=== PATIENT | female | born 1990 | race Caucasian/White ===

== ENCOUNTER → 2020-10-22 | Outpatient (CLI) | payer OTHER ==
--- NOTE | 2020-10-22 11:44 | US ---
EXAMINATION TYPE: Transabdominal DATE OF EXAM: 10/22/2020 11:28 AM COMPARISON: NONE CLINICAL HISTORY: R10.9 stomach cramps. EXAM PERFORMED: EXAM MEASUREMENTS: GESTATIONAL AGE / DATING Physician Established: (13 weeks/0 days) EDC: 04-29-21 Dates by LMP: (13 weeks/0 days) EDC: 04-29-21 Dates by First Scan: ( weeks/ days) EDC: Dates by Current Scan for: (13 weeks/6 days) EDC: 04-23-21 MATERNAL ANATOMY Uterus: 12.2 x 9.4 x 10.4cm Right Ovary: not visualized due to increased uterine size/overlying bowel gas Left Ovary: not visualized due to increased uterine size/overlying bowel gas Post CDS / Adnexa: wnl Presence of free fluid: no GESTATION / SURVEY CRL: (13 weeks/6 days) Yolk Sac (normal less than 6mm): not seen Heart Rate: 165 bpm Rhythm: Normal IUP: Viable IUP Date of LMP: 07-23-21 Beta HcG (if available): Not available at this time IMPRESSION: Single viable intrauterine .
== END | disposition home or self-care (01) ==
LOC: RADUSWWP 11:12
PROVIDERS: ATTEND Family Medicine
DX: R10.9 Unspecified abdominal pain (principal); Z3A.13 13 weeks gestation of pregnancy
CPT/HCPCS: 76801

== ENCOUNTER 2021-04-28 09:02 | Inpatient (IN) | payer OTHER ==
[2021-04-28] MEDS ORDERED: METHYLERGONOVINE 0.2 MG/ML 1 ML AMP IM PRN (09:10)
[2021-04-28] MEDS ORDERED: OXYTOCIN 10 UNIT/ML 1 ML VIAL IM PRN (09:10)
[2021-04-28] MEDS ORDERED: CARBOPROST TROMETHAMINE 250 MCG/ML 1 ML AMP IM PRN (09:10)
[2021-04-28] MEDS ORDERED: TERBUTALINE 1 MG/ML VIAL SQ PRN (09:10)
[2021-04-28] MEDS ORDERED: LIDOCAINE 0.5% (PF) 5 MG/ML (50 ML SDV) SQ PRN (09:10)
[2021-04-28] MEDS ORDERED: LACTATED RINGERS 1,000 ML IV SCH (09:15)
[2021-04-28] MEDS ORDERED: OXYTOCIN 30 UNITS/500 ML NS 30 UNIT in SALINE 1 500ML.BAG IV SCH ×2 (09:15→12:00)
[2021-04-28] MEDS ORDERED: BUTORPHANOL 1 MG/ML 1 ML VIAL IV PRN (10:04)
--- NOTE | 2021-04-28 10:14 | P.HPOB ---
History of Present Illness H&P Date: 04/28/21 Chief Complaint: Contractions This is a 30-year-old female 3 para 1 with an estimated date of confinement of 04/29/2021, estimated gestational age of 39-6/7 weeks, who presents to labor and delivery with complaints of contractions that began about 3 AM this morning. She denies any rupture of membranes. care has been with Dr. Christensen and has been uncomplicated. labs: GC/Chlamydia/Trichomonas-negative Hepatitis B surface antigen-negative RPR-nonreactive Rubella-immune Blood type- O+ Antibody screen-negative HIV-nonreactive Hemoglobin-12.2 Toxoplasma screen-negative Random glucose-83 Obstetrical ultrasound-normal anatomy One hour Glucola-108 Group B streptococcus-negative Obstetrical history: . History of 1 vaginal delivery at term and one termination of (confidential). Gynecologic history: No history of sexual transmitted infections Social history: She is single. 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 Review of Systems Constitutional: Denies chills, Denies fever Eyes: denies blurred vision, denies pain Ears, nose, mouth and throat: Denies headache, Denies sore throat Cardiovascular: Denies chest pain, Denies shortness of breath Respiratory: Denies cough Gastrointestinal: Reports abdominal pain (Contractions) Genitourinary: Reports pelvic pain, Reports Musculoskeletal: Reports low back pain Integumentary: Denies pruritus, Denies rash Neurological: Denies numbness, Denies weakness Psychiatric: Denies anxiety, Denies depression Past Medical History Past Medical History: No Reported History History of Any Multi-Drug Resistant Organisms: None Reported Additional Past Surgical History / Comment(s): Patient's had her wisdom teeth extracted. Past Anesthesia/Blood Transfusion Reactions: No Reported Reaction Past Psychological History: No Psychological Hx Reported Smoking Status: Never smoker Past Alcohol Use History: None Reported Past Drug Use History: None Reported - Past Family History Father Family Medical History: No Reported History Medications and Allergies Home Medications Medication Instructions Recorded Confirmed Type Cub-Lwgi-Fauaf Acid 1 tab PO DAILY 08/05/14 04/28/21 History [-U Capsule (formulary)] Allergies Allergy/AdvReac Type Severity Reaction Status Date / Time Penicillins Allergy Unknown Verified 08/05/14 01:03 Childhood Exam Osteopathic Statement: *. No significant issues noted on an osteopathic structural exam other than those noted in the History and Physical/Consult. Vital Signs Temp Pulse Resp BP Pulse Ox 04/28/21 09:16 97.2 F L 80 18 128/77 100 Intake and Output 04/27/21 04/28/21 04/28/21 22:59 06:59 14:59 Other: Weight 73.936 kg HEENT: Within normal limits Heart: Regular rate and rhythm Lungs: Clear to auscultation bilaterally Abdomen: Cervix: Upon admission was 6 cm with bulging bag. Currently is 7-1/2-8 cm/100%/-2 station. Artificial rupture of membranes is carried out with clear fluid noted. heart tones: Category 1, reactive Contractions: Every 2-3 minutes Extremities: Negative Homans Assessment and Plan (1) 39 weeks gestation of Current Visit: Yes Status: Acute Code(s): Z3A.39 - 39 WEEKS GESTATION OF PRE GNANCY SNOMED Code(s): 03993280 Plan: Admission for active labor. Expectant management. We'll give a small dose of Stadol since she is progressing rapidly and is unable to get epidural at this time.
--- NOTE | 2021-04-28 11:07 | P.PROBDLV ---
Vaginal Delivery Note - . Vaginal Delivery Note: Patient progressed to complete dilation after artificial rupture membranes with clear fluid noted. She did receive a half a milligram of Stadol while in labor. Once reaching anterior lip, she had a strong urge to push. The lip was pushed away with pushing efforts by nursing staff. Once the lip was gone and she became complete, she began pushing further. Infant's head came to a crown. With one further push, the 's head delivered across the perineum followed by the anterior shoulder. Nose and mouth were bulb suctioned. Nuchal cord times one was reduced on the with delivery. was placed on mother's abdomen. Cord was clamped and cut and infant was taken to warmer for evaluation. A viable female was noted with scores of 6 at 1 minute and 9 at 5 minutes and infant weight of 8 lbs. 4 oz. Placenta delivered shortly thereafter, intact, with a three-vessel cord. Uterus contracted fairly well after oxytocin was given IM and uterine massage was carried out. Inspection of the perineum revealed a small second-degree perineal laceration and a right periurethral laceration. These areas were anesthetized with 1% lidocaine and then sutured with 3-0 Vicryl suture in a running locked fashion and 2-0 Vicryl suture in the usual multilayer fashion. There was also noted to be a left periurethral abrasion that was noted to be hemostatic. Estimated blood loss is approximately 200 mL's. Both mother and infant are in stable condition.
[2021-04-28] MEDS ORDERED: ACETAMINOPHEN TAB 325 MG TAB PO PRN (11:52)
[2021-04-28] MEDS ORDERED: diphenhydrAMINE 50 MG/ML 1 ML VIAL IVP PRN ×2 (11:52)
[2021-04-28] MEDS ORDERED: SIMETHICONE 80 MG CHEWABLE PO PRN (11:52)
[2021-04-28] MEDS ORDERED: ZOLPIDEM 5 MG TAB PO PRN (11:52)
[2021-04-28] MEDS ORDERED: diphenhydrAMINE 50 MG CAP PO PRN (11:52)
[2021-04-28] MEDS ORDERED: LANOLIN CREAM 5 GM TUBE TOPICAL PRN (11:52)
[2021-04-28] MEDS ORDERED: HYDROCORTISONE 2.5% RECTAL CREAM 30 GM TUBE RECTAL PRN (11:52)
[2021-04-28] MEDS ORDERED: BENZOCAINE/MENTHOL SPRAY 1 GM/SPRAY AEROSOL TOPICAL PRN (11:52)
[2021-04-28] MEDS ORDERED: diphenhydrAMINE 25 MG CAP PO PRN (11:52)
[2021-04-28] MEDS: IBUPROFEN 600 MG TAB PO PRN ×2 (12:13→18:56)
[2021-04-28 14:28] LABS: Basophils % (A) 0 %; Eosinophils % (A) 0 %; HCT 30.8 % (34.0-46.0); HGB 10.3 gm/dL (11.4-16.0); Lymphocytes # (A) 1.3 k/uL (1.0-4.8); Lymphocytes % (A) 7 %; MCH 29.1 pg (25.0-35.0); MCHC 33.6 g/dL (31.0-37.0); MCV 86.7 fL (80.0-100.0); Mean Platelet Volume 8.8; Monocytes # (A) 0.8 k/uL (0-1.0); Monocytes % (A) 4 %; Neutrophils # (A) 16.9 k/uL (1.3-7.7); Neutrophils % (A) 88 %; Platelet Count 268 k/uL (150-450); Poikilocytosis Slight; RBC 3.55 m/uL (3.80-5.40); RDW 14.7 % (11.5-15.5); WBC 19.1 k/uL (3.8-10.6)
[2021-04-28] MEDS ORDERED: SENNOSIDES-DOCUSATE SODIUM 1 EACH TAB PO SCH (20:00)
[2021-04-28 20:29] VITALS: RESP 16
[2021-04-29] MEDS: IBUPROFEN 600 MG TAB PO PRN ×2 (01:42→08:19)
--- NOTE | 2021-04-29 05:47 | P.PNOBGVD ---
Subjective - Subjective Patient reports: Reports appetite normal, Reports voiding normally, Reports pain well controlled, Reports ambulating normally : doing well Objective - Latest Vital Signs Latest vital signs: Vital Signs Temp Pulse Resp BP Pulse Ox 04/29/21 03:59 97.5 F L 73 16 117/75 04/29/21 00:00 83 16 106/53 04/28/21 20:00 97.5 F L 71 16 109/70 04/28/21 16:00 97.4 F L 85 18 120/75 99 04/28/21 13:00 97.8 F 68 18 131/68 100 04/28/21 12:30 87 18 121/77 100 04/28/21 12:00 68 18 112/68 04/28/21 11:45 98.1 F 74 18 115/63 04/28/21 11:30 73 18 112/58 04/28/21 11:15 98.0 F 79 18 116/65 04/28/21 11:00 98.0 F 83 18 110/59 100 04/28/21 09:16 97.2 F L 80 18 128/77 100 Intake and Output 04/28/21 04/28/21 04/29/21 14:59 22:59 06:59 Intake Total 600 200 Balance 600 200 Intake: Oral 600 200 Other: # Voids 1 3 Weight 73.936 kg - Exam Lungs: bilateral: normal Chest: Normal S1, Normal S2 Extremities: Present: normal Abdomen: Present: normal appearance, soft Uterus: Present: normal, firm - Labs Labs: Abnormal Lab Results - Last 24 Hours (Table) 04/28/21 Range/Units 14:11 WBC 19.1 H (3.8-10.6) k/uL RBC 3.55 L (3.80-5.40) m/uL Hgb 10.3 L (11.4-16.0) gm/dL Hct 30.8 L (34.0-46.0) % Neutrophils # 16.9 H (1.3-7.7) k/uL Assessment and Plan Assessment: day #1. Patient is resting without complaints and wishes to go home. Vital signs are stable and she is afebrile. Uterus is firm nontender she's having normal lochia. My impression this is a normal course. Plan is to continue routine care, check CBC, discharge home later today. (1) 39 weeks gestation of Current Visit: Yes Status: Acute Code(s): Z3A.39 - 39 WEEKS GESTATION OF SNOMED Code(s): 10906572 (2) Normal labor and delivery Current Visit: No Status: Acute Code(s): O80 - ENCOUNTER FOR FULL-TERM UNCOMPLICATED DELIVERY SNOMED Code(s): 82186290
--- NOTE | 2021-04-29 05:52 | P.DS ---
Providers Date of admission: 04/28/21 09:13 Expected date of discharge: 04/29/21 Attending physician: Ra Christensen Primary care physician: Stated None - Discharge Diagnosis(es) (1) 39 weeks gestation of Current Visit: Yes Status: Acute (2) Normal labor and delivery Current Visit: No Status: Acute Hospital Course: Please see dictated H&P and delivery note per Dr. Mcneil on this patient's admission. Brief summary this is a pleasant 30-year-old 3 para 1 female 39-6/7 weeks gestation admitted to labor and delivery in active labor. Patient quickly goes on have a vaginal delivery viable female infant. Please see dictated delivery note. day #1 patient's felt be stable for discharge home follow up with me in 6 weeks. Procedures: Normal spontaneous vaginal delivery. Patient Condition at Discharge: Good Plan - Discharge Summary New Discharge Prescriptions: New Ibuprofen [Motrin] 600 mg PO Q6HR PRN #30 tab PRN Reason: Pain No Action Duj-Bhmf-Bewzc Acid [-U Capsule (formulary)] 1 tab PO DAILY Discharge Medication List Tix-Dyws-Kqwao Acid [-U Capsule (formulary)] 1 tab PO DAILY 08/05/14 [History] Ibuprofen [Motrin] 600 mg PO Q6HR PRN #30 tab 04/29/21 [Rx] Follow up Appointment(s)/Referral(s): Ra Christensen MD [STAFF PHYSICIAN] - 6 Weeks Patient Instructions/Handouts: Vaginal Delivery (DC) Activity/Diet/Wound Care/Special Instructions: No intercourse or anything per vagina for 6 weeks. Please call for any fever, chills, excessive vaginal bleeding, and/or abdominal pain. Discharge Disposition: HOME SELF-CARE
[2021-04-29 06:55] LABS: Basophils % (A) 0 %; Eosinophils # (A) 0.1 k/uL (0-0.7); Eosinophils % (A) 1 %; HGB 10.2 gm/dL (11.4-16.0); Lymphocytes # (A) 1.9 k/uL (1.0-4.8); Lymphocytes % (A) 15 %; MCHC 35.1 g/dL (31.0-37.0); MCV 85.7 fL (80.0-100.0); Mean Platelet Volume 8.1; Monocytes # (A) 0.7 k/uL (0-1.0); Monocytes % (A) 5 %; Neutrophils # (A) 9.7 k/uL (1.3-7.7); Neutrophils % (A) 76 %; Platelet Count 258 k/uL (150-450); Poikilocytosis Slight; RBC 3.39 m/uL (3.80-5.40); WBC 12.7 k/uL (3.8-10.6)
[2021-04-29 08:30] VITALS: BP 96/62; PULSE 64; TEMP 98
[2021-04-29] MEDS ORDERED: PRENATAL VIT-IRON-FOLIC ACID 1 EACH CAP PO SCH (09:00)
== END 2021-04-29 13:15 | disposition home or self-care (01) | DRG 807 ==
LOC: FBPOP 09:02 → 4FBP 09:13
PROVIDERS: ADMIT Obstetrics & Gynecology; ATTEND Obstetrics & Gynecology
PROC: 10E0XZZ Delivery of Products of Conception, External Approach (ICD-10-PCS; principal; 2021-04-28)
PROC: 0KQM0ZZ Repair Perineum Muscle, Open Approach (ICD-10-PCS; 2021-04-28)
PROC: 0UQMXZZ Repair Vulva, External Approach (ICD-10-PCS; 2021-04-28)
PROC: 10907ZC Drainage of Amniotic Fluid, Therapeutic from Products of Conception, Via Natural or Artificial Opening (ICD-10-PCS; 2021-04-28)
PROC: 3E033VJ Introduction of Other Hormone into Peripheral Vein, Percutaneous Approach (ICD-10-PCS; 2021-04-28)
DX: O69.81X0 Labor and delivery complicated by cord around neck, without compression, not applicable or unspecified (principal); Z37.0 Single live birth; O70.1 Second degree perineal laceration during delivery; O71.82 Other specified trauma to perineum and vulva; Z3A.39 39 weeks gestation of pregnancy; Z88.0 Allergy status to penicillin
CPT/HCPCS: 85025; 86850; 86900; 86901; 99213

== ENCOUNTER → 2024-08-09 | Outpatient (CLI) | payer OTHER ==
[2024-08-09 11:52] LABS: Basophils % (A) 1 %; Eosinophils # (A) 0.1 k/uL (0-0.7); Eosinophils % (A) 2 %; HCT 41.6 % (34.0-46.0); Lymphocytes # (A) 1.9 k/uL (1.0-4.8); Lymphocytes % (A) 30 %; MCH 31.3 pg (25.0-35.0); MCHC 33.7 g/dL (31.0-37.0); Mean Platelet Volume 6.7; Monocytes # (A) 0.4 k/uL (0-1.0); Monocytes % (A) 6 %; Neutrophils % (A) 61 %; Platelet Count 320 k/uL (150-450); RBC 4.48 m/uL (3.80-5.40); RDW 12.2 % (11.5-15.5); WBC 6.6 k/uL (3.8-10.6)
--- NOTE | 2024-08-09 12:11 | XR ---
EXAMINATION TYPE: XR lumbosacral spine min 4V DATE OF EXAM: 08/09/2024 12:00 PM COMPARISON: None. CLINICAL INDICATION: Female, 33 years old with history of M53.3 SACROCOCCYGEAL DISORDER, pain TECHNIQUE: Frontal, lateral, and bilateral oblique images of the lumbar spine are obtained. FINDINGS: There are 5 lumbar type vertebral bodies identified. The lumbar spine shows satisfactory alignment without evidence of acute fracture or dislocation. Vertebral body heights and disk space he ights are within normal limits. The oblique images appear within normal limits. The overlying soft tissue appears unremarkable. IMPRESSION: Unremarkable study [facility], , 08/09/2024 12:08 PM
[2024-08-09 12:14] LABS: ALT 12 U/L (4-34); AST 20 U/L (14-36); African American GFR (CKD) >90 (>60 ml/min/1.73 sqM); Albumin/Globulin Ratio 1.9; Alkaline Phosphatase 51 U/L (38-126); Anion Gap 9 mmol/L; Blood Urea Nitrogen 14 mg/dL (7-17); Calcium 10.3 mg/dL (8.4-10.2); Carbon Dioxide 28 mmol/L (22-30); Chloride 104 mmol/L (98-107); Globulin 2.7 g/dL; Glucose 98 mg/dL (74-99); Non-African American GFR(CKD) >90 (>60 ml/min/1.73 sqM); Potassium 5.1 mmol/L (3.5-5.1); Sodium 141 mmol/L (137-145); Total Bilirubin 0.3 mg/dL (0.2-1.3); Total Protein 7.7 g/dL (6.3-8.2)
[2024-08-09 12:17] LABS: Appearance,Urine Cloudy (Clear); Bacteria,Urine Many /hpf; Bilirubin,Urine Negative (Negative); Blood,Urine Negative (Negative); Budding Yeast,Urine Occasional /hpf; Color,Urine Yellow; Glucose,Urine (UA) Negative (Negative); Ketones,Urine Negative (Negative); Leukocyte Esterase,Urine Large (Negative); Mucus,Urine Few /hpf; Nitrite,Urine Positive (Negative); Protein,Urine Trace (Negative); RBC,Urine 2 /hpf (0-5); Specific Gravity,Urine 1.025 (1.001-1.035); Squamous Epithelial Cell,Urine 4 /hpf (0-4); Urobilinogen,Urine <2.0 mg/dL (<2.0); WBC,Urine 112 /hpf (0-5)
--- NOTE | 2024-08-09 12:20 | XR ---
EXAMINATION TYPE: XR sacrum coccyx DATE OF EXAM: 08/09/2024 COMPARISON: NONE CLINICAL INDICATION: Female, 33 years old with history of M53.3 SACROCOCCYGEAL DISORDER; TECHNIQUE: 2 views of sacrum and coccyx. FINDINGS: No acute displaced fracture in the sacrum or coccyx. Sacral alae are maintained bilaterally . Overlying soft tissue shows occasional tiny pelvic phlebolith. IMPRESSION: As above. [facility], , 08/09/2024 12:17 PM
[2024-08-09 15:58] LABS: Hepatitis B Surface Antigen Nonreactive (Nonreactive)
[2024-08-09 16:07] LABS: Chol/HDL Ratio 2.49 Ratio; LDL Cholesterol,Calculated 102.3 mg/dL (0.0-131.0); VLDL Calculation 13.66 mg/dL (5.00-40.00)
[2024-08-09 21:48] LABS: HIV 2 AB Non-Reactive (Non-Reactive); HIV AB P24 Non-Reactive (Non-Reactive); HIV P24 AG Non-Reactive (Non-Reactive)
== END | disposition home or self-care (01) ==
LOC: LABWHC1 10:54
PROVIDERS: ATTEND Family Medicine
DX: M53.3 Sacrococcygeal disorders, not elsewhere classified (principal); R00.2 Palpitations; R63.6 Underweight; R22.1 Localized swelling, mass and lump, neck; R82.90 Unspecified abnormal findings in urine
CPT/HCPCS: 36415; 72110; 72220; 80053; 80061; 81001; 82306; 83036; 84443; 85025; 86780; 87086; 87340; 87390; 87522

== ENCOUNTER → 2024-09-02 | Outpatient (CLI) | payer OTHER ==
--- NOTE | 2024-09-02 16:57 | US ---
EXAMINATION TYPE: US thyroid st tissue head/neck DATE OF EXAM: 09/02/2024 COMPARISON: NONE CLINICAL INDICATION: Female, 33 years old with history of R22.1 SWELLING MASS LUMP; swollen thyroid TECHNIQUE: Grayscale and color Doppler imaging of the thyroid gland. FINDINGS: GLAND SIZE: Right Lobe: 5.3 x 1.5 x 1.7 cm Overall Parenchyma: homogeneous Left Lobe: 5.2 x 1.4 x 1.5 cm Overall Parenchyma: homogeneous Isthmus Thickness: 0.2 cm NODULES RIGHT: # of nodules measured on right: Tiny 3 mm colloid cyst. LEFT: # of nodules measured on left: 0 ISTHMUS: # of nodules measured in the isthmus: 0 Bilateral neck scanned, no evidence of lymphadenopathy. IMPRESSION: 1. Thyromegaly. Possible goiter. Correlate with TFTs to exclude thyroiditis. 2. Only a solitary benign 3 mm colloid cyst is otherwise present in the gland. [facility], Workstation: [facility], 09/02/2024 4:55 PM
== END | disposition home or self-care (01) ==
LOC: RADUSWWP 14:15
PROVIDERS: ATTEND Family Medicine
DX: E01.0 Iodine-deficiency related diffuse (endemic) goiter (principal); R22.1 Localized swelling, mass and lump, neck
CPT/HCPCS: 76536